=== PATIENT | female | born 1945 | race Hispanic/Latino ===

== ENCOUNTER 2020-12-07 11:40 | Emergency (ER) | payer MEDICARE ==
[2020-12-07 14:21] LABS: #Eosinphils 0.3 thou/uL (0.0-0.7); #Lymphocytes 2.5 thou/uL (1.20-3.40); #Monocytes 0.6 thou/uL (0.11-0.59); #Neutrophils 5.4 thou/uL (1.40-6.50); %Basophils 0.5 % (0.0-1.0); %Eosinophils 3.1 % (0.0-10.0); %Lymphocytes 28.4 % (21.0-51.0); %Monocytes 6.7 % (0.0-10.0); %Neutrophils 61.2 % (42.0-75.0); Hemoglobin 10.7 g/dL (12.0-16.0); Mean Corpuscular HGB CONC 34.5 g/dL (32.0-36.0); Mean Corpuscular Hemoglobin 31.3 pg (27.0-31.0); Mean Corpuscular Volume 90.7 fL (78.0-98.0); Mean Platelet Volume 8.8 fL (7.4-10.4); Platelet Count 203 thou/uL (130-400); RBC Distribution Width 12.8 % (11.5-14.5); Red Blood Cell (RBC) Count 3.44 mill/uL (4.20-5.40); White Blood Cell (WBC) Count 8.8 thou/uL (4.8-10.8)
[2020-12-07 14:47] LABS: ALT (SGPT) 14 U/L (8-55); AST (SGOT) 18 U/L (5-34); Albumin 3.9 g/dL (3.4-4.8); Alkaline Phosphatase 79 U/L (40-110); Anion Gap 13 mmol/L (10-20); BUN (Urea Nitrogen) 31 mg/dL (9.8-20.1); Bilirubin, Total 0.5 mg/dL (0.2-1.2); Calc. Creatinine Clearance 0 mL/min (70-130); Calcium 9.3 mg/dL (7.8-10.44); Carbon Dioxide 29 mmol/L (23-31); Chloride 103 mmol/L (98-107); Globulin 2.9 g/dL (2.4-3.5); Glucose 80 mg/dL (83-110); Potassium 4.2 mmol/L (3.5-5.1); Protein, Total 6.8 g/dL (5.8-8.1); Sodium 141 mmol/L (136-145)
[2020-12-07] MEDS ORDERED: Fentanyl 100 MCG/2 ML VIAL ONE (15:26)
== END 2020-12-07 16:29 | disposition home or self-care (01) ==
LOC: ERS 11:40
DX: M79.604 Pain in right leg (principal); E11.9 Type 2 diabetes mellitus without complications; I10 Essential (primary) hypertension; Z79.899 Other long term (current) drug therapy; Z79.82 Long term (current) use of aspirin; Z79.4 Long term (current) use of insulin
CPT/HCPCS: 72131; 80053; 85025; 96374; J3010